=== PATIENT | female | born 1975 | race Caucasian/White ===

== ENCOUNTER 2016-11-06 15:27 | Emergency (ER) | payer SELFPAY ==
[~2016-11-06] VITALS: Ht 152.4 cm; Wt 65.0 kg
[2016-11-06 15:29] VITALS: BP 117/80; PULSE 112; RESP 20; TEMP 97.9; O2SAT 97
--- NOTE | 2016-11-06 15:33 | PD ---
Physical Exam Time Seen by Provider: 15:32 Narrative 41 y/o female presents for evaluation of weakness, headache for one week. Concerned her potassium level may be low Vital signs reviewed. Seen at triage desk. Awaiting bed placement. Data Data Last Documented VS Vital Signs Date Time Temp Pulse Resp B/P Pulse Ox O2 Delivery O2 Flow Rate FiO2 11/06/16 15:42 95 15 97 Room Air 11/06/16 15:29 97.9 117/80 Orders Complete Blood Count With Diff (11/06/16 15:46) Comprehensive Metabolic Panel (11/06/16 15:46) Lipase (11/06/16 15:46) Urinalysis - C+S If Indicated (11/06/16 15:46) Iv Access Insert/Monitor (11/06/16 15:46) Ecg Monitoring (11/06/16 15:46) Oximetry (11/06/16 15:46) Ondansetron Inj (Zofran Inj) (11/06/16 16:00) Sodium Chlor 0.9% 1000 Ml Inj (Ns 1000 M (11/06/16 15:46) Sodium Chloride 0.9% Flush (Ns Flush) (11/06/16 16:00) Ed Urine Pregnancytest Poc (11/06/16 15:46) Sodium Chlor 0.9% 1000 Ml Inj (Ns 1000 M (11/06/16 16:00) MDM Medical Record Reviewed: Yes Supervised Visit with RICHARD: Vamsi Castle November 06, 2016 15:33
[2016-11-06] MEDS ORDERED: ALBUAER3 INH (15:45)
[2016-11-06] MEDS ORDERED: ZOFR4TAB PO (15:45)
[2016-11-06] MEDS ORDERED: SYMB80AE INH (15:45)
[2016-11-06] MEDS ORDERED: SODIUM CHLOR 0.9% 1000 ML INJ 1,000 ML IV SCH (15:46)
[2016-11-06 15:54] VITALS: O2SAT 100
--- NOTE | 2016-11-06 15:56 | PD ---
HPI Chief Complaint: General Weakness Time Seen by Provider: 15:40 Travel History International Travel<30 days: No Contact w/Intl Traveler<30days: No Traveled to known affect area: No History of Present Illness HPI 41-year-old female complains of weakness, tiredness, nausea, lightheadedness, fatigue, right upper quadrant pain, double vision for one week. 3 weeks prior she underwent a cholecystectomy. She denies fever. No vaginal bleeding or discharge. No urinary complaint. Severity moderate. Timing is intermittent. PFSH Past Medical History Asthma: Yes Heart Rhythm Problems: Yes (tachycardia) Cardiovascular Problems: Yes (PFO) Diminished Hearing: No Hepatitis: Yes (C) Inguinal Hernia: Yes Medical other: Yes (HYPOKALEMIA) Tetanus Vaccination: Unknown Influenza Vaccination: No ?: Not Past Surgical History Appendectomy: Yes Cholecystectomy: Yes (3 weeks ago) Hysterectomy: Yes Other Surgery: Yes (hernia sx ) Social History Alcohol Use: No Tobacco Use: Yes (/2 ppd) Substance Use: No Allergies-Medications (Allergen,Severity, Reaction): Coded Allergies: Beta Blockers (Verified Allergy, Intermediate, "passes out", 11/06/16) Reported Meds & Prescriptions Reported Meds & Active Scripts Active Bactrim DS (Sulfamethoxazole-Trimethoprim) 800-160 Mg Tab 1 Tab PO BID Keflex (Cephalexin) 250 Mg Cap 250 Mg PO Q6H 5 Days Reported Zofran (Ondansetron HCl) 4 Mg Tab 4 Mg PO Q8HR PRN Proair Hfa 8.5 GM Inh (Albuterol Sulfate) 90 Mcg/Act Aer 2 Puff INH Q4-6H PRN 108 mcg/actuation Symbicort Inh (Budesonide/Formoterol Fumarate) 80-4.5 Mcg/Act Aero 2 Puff INH Q12HR Review of Systems Except as stated in HPI: all other systems reviewed are Neg General / Constitutional: No: Fever Physical Exam Narrative GENERAL: Well-nourished well-developed 41-year-old female SKIN: Warm and dry. HEAD: Atraumatic. Normocephalic. EYES: Pupils equal and round. No scleral icterus. No injection or drainage. ENT: No nasal bleeding or discharge. Mucous membranes pink and moist. NECK: Trachea midline. No JVD. CARDIOVASCULAR: Regular rate and rhythm. RESPIRATORY: No accessory muscle use. Clear to auscultation. Breath sounds equal bilaterally. GASTROINTESTINAL: Soft. Minimal tenderness to deep palpation in the right abdomen. MUSCULOSKELETAL: Extremities without clubbing, cyanosis, or edema. No obvious deformities. NEUROLOGICAL: Awake and alert. No obvious cranial nerve deficits. Motor grossly within normal limits. Five out of 5 muscle strength in the arms and legs. Normal speech. PSYCHIATRIC: Appropriate mood and affect; insight and judgment normal. Data Data Last Documented VS Vital Signs Date Time Temp Pulse Resp B/P Pulse Ox O2 Delivery O2 Flow Rate FiO2 11/06/16 15:54 100 Room Air 11/06/16 15:42 95 15 11/06/16 15:29 97.9 117/80 Vital signs reviewed Orders Complete Blood Count With Diff (11/06/16 15:46) Comprehensive Metabolic Panel (11/06/16 15:46) Lipase (11/06/16 15:46) Urinalysis - C+S If Indicated (11/06/16 15:46) Iv Access Insert/Monitor (11/06/16 15:46) Ecg Monitoring (11/06/16 15:46) Oximetry (11/06/16 15:46) Ondansetron Inj (Zofran Inj) (11/06/16 16:00) Sodium Chlor 0.9% 1000 Ml Inj (Ns 1000 M (11/06/16 15:46) Sodium Chloride 0.9% Flush (Ns Flush) (11/06/16 16:00) Ed Urine Pregnancytest Poc (11/06/16 15:46) Sodium Chlor 0.9% 1000 Ml Inj (Ns 1000 M (11/06/16 16:00) Labs Laboratory Tests Test 11/06/16 11/06/16 15:56 16:15 Urine Color YELLOW Urine Turbidity HAZY Urine pH 5.5 Urine Specific [place] 1.031 Urine Protein TRACE mg/dL Urine Glucose (UA) NEG mg/dL Urine Ketones 10 mg/dL Urine Occult Blood NEG Urine Nitrite NEG Urine Bilirubin NEG Urine Urobilinogen 2.0 MG/DL Urine Leukocyte Esterase LARGE Urine WBC 1 /hpf Urine Squamous Epithelial 1 /hpf Cells Urine Bacteria FEW /hpf Urine Mucus MANY /lpf Microscopic Urinalysis Comment CULT NOT INDICATED White Blood Count 6.6 TH/MM3 Red Blood Count 4.73 MIL/MM3 Hemoglobin 16.3 GM/DL Hematocrit 45.7 % Mean Corpuscular Volume 96.6 FL Mean Corpuscular Hemoglobin 34.5 PG Mean Corpuscular Hemoglobin 35.7 % Concent Red Cell Distribution Width 13.4 % Platelet Count 222 TH/MM3 Mean Platelet Volume 7.9 FL Neutrophils (%) (Auto) 63.4 % Lymphocytes (%) (Auto) 28.2 % Monocytes (%) (Auto) 6.8 % Eosinophils (%) (Auto) 1.3 % Basophils (%) (Auto) 0.3 % Neutrophils # (Auto) 4.2 TH/MM3 Lymphocytes # (Auto) 1.9 TH/MM3 Monocytes # (Auto) 0.5 TH/MM3 Eosinophils # (Auto) 0.1 TH/MM3 Basophils # (Auto) 0.0 TH/MM3 CBC Comment DIFF FINAL Differential Comment Sodium Level 140 MEQ/L Potassium Level 4.0 MEQ/L Chloride Level 110 MEQ/L Carbon Dioxide Level 23.2 MEQ/L Anion Gap 7 MEQ/L Blood Urea Nitrogen 9 MG/DL Creatinine 0.62 MG/DL Estimat Glomerular Filtration 107 ML/MIN Rate Random Glucose 96 MG/DL Calcium Level 8.9 MG/DL Total Bilirubin 0.6 MG/DL Aspartate Amino Transf 22 U/L (AST/SGOT) Alanine Aminotransferase 40 U/L (ALT/SGPT) Alkaline Phosphatase 61 U/L Total Protein 8.0 GM/DL Albumin 4.2 GM/DL Lipase 215 U/L [facility] Medical Decision Making Medical Screen Exam Complete: Yes Emergency Medical Condition: Yes Differential Diagnosis Constipation, Gastritis, Acute Cholecystitis, Biliary Colic, Pancreatitis, MARTINEZ , Hepatitis, Bowel Obstruction, Cystitis, Mesenteric Ischemia, AAA, Appendicitis , Renal Stone/Hydronephrosis, GERD, perforated viscous Narrative Course CBC & BMP Diagram 11/06/16 16:15 LFTs normal Lipase normal UA: possible UTI POC negative The patient is resting comfortably and feels better, is alert and in no distress. The patients results and examination findings were discussed. The repeat examination is unremarkable and benign. The history, exam, diagnostic testing, and current condition do not suggest any significant pathology to warrant further testing, continued ED treatment, admission, or surgical evaluation at this point. The vital signs have been stable. The patient does not have uncontrollable pain, intractable vomiting, or other significant symptoms. The patient's condition is stable and appropriate for discharge. The patient will pursue further outpatient evaluation with a primary care physician or other designated or consulting physician as indicated in the discharge instructions. The patient expressed understanding and was agreeable with this plan. Diagnosis Primary Impression: Malaise and fatigue Additional Impressions: RUQ abdominal pain Cystitis Referrals: Tarik Fletcher MD 2 days Additional Instructions: You have a choice when it comes to health care, and we are glad that you chose [facility]. Hopefully, we have met your expectations on today's visit. You are welcome to return to [facility] at any time, as we are committed to meeting the health care needs of our community. Med/Other Pt SpecificInfo: Prescription(s) given Scripts Sulfamethoxazole-Trimethoprim (Bactrim DS)800-160 Mg Tab1 Tab PO BID #6 TAB Ref 1 Prov:Sunny Guardado MD 11/06/16 Cephalexin (Keflex)250 Mg [id number] Mg PO Q6H 5 Days Ref 0 Prov:Sunny Guardado MD 11/06/16 Disposition: 01 DISCHARGE HOME Condition: Stable Sunny Guardado MD November 06, 2016 15:56
[2016-11-06] MEDS ORDERED: SODIUM CHLOR 0.9% 1000 ML INJ 1,000 ML IV ONE (16:00)
[2016-11-06] MEDS ORDERED: SODIUM CHLORIDE 0.9% FLUSH 10 ML FLUSH IV FLUSH PRN (16:00)
[2016-11-06] MEDS ORDERED: ONDANSETRON HCL 4 MG/2 ML VIAL IVP ONE (16:00)
[2016-11-06 16:33] LABS: BACTERIA, URINE FEW /hpf; BLOOD, URINE NEG (NEG); COMMENT (UR) CULT NOT INDICATED; CULTURE IF INDICATED CULT NOT INDICATED; GLUCOSE,URINE NEG (NEG); KETONE, URINE 10 mg/dL (NEG); MUCUS URINE MANY /lpf (OCC); NITRITE,URINE NEG (NEG); PH, URINE 5.5 (5.0-8.5); SQUAMOUS EPITHELIAL CELL URINE 1 /hpf (0-5); URINE COLOR YELLOW (YELLW/STRAW)
[2016-11-06 16:35] LABS: AUTOMATED NEUTROPHIL # 4.2 TH/MM3 (1.8-7.7); BASOPHIL % 0.3 % (0.0-2.0); EOSINOPHIL # 0.1 TH/MM3 (0-0.4); EOSINOPHIL % 1.3 % (0.0-4.0); HEMATOCRIT 45.7 % (35.0-46.0); HEMO FLAGS DIFF FINAL; LYMPH % 28.2 % (9.0-44.0); LYMPHOCYTE # 1.9 TH/MM3 (1.0-4.8); MEAN CELL VOLUME 96.6 FL (80.0-100.0); MEAN CORPUSCULAR HEMOGLOBIN 34.5 PG (27.0-34.0); MEAN CORPUSCULAR HGB CONC 35.7 % (32.0-36.0); MONO % 6.8 % (0.0-8.0); NEUT % 63.4 % (16.0-70.0); PLATELET COUNT 222 TH/MM3 (150-450); RED BLOOD COUNT 4.73 MIL/MM3 (4.00-5.30); RED CELL DISTRIBUTION WIDTH 13.4 % (11.6-17.2); WHITE BLOOD COUNT 6.6 TH/MM3 (4.0-11.0)
[2016-11-06 17:27] LABS: ALT (GPT) 40 U/L (10-53); ANION GAP 7 MEQ/L (5-15); AST (GOT) 22 U/L (15-37); BICARBONATE 23.2 MEQ/L (21.0-32.0); BLOOD UREA NITROGEN 9 MG/DL (7-18); CHLORIDE 110 MEQ/L (98-107); GLOMERULAR FILTRATION RATE 107 ML/MIN (>89); SODIUM (NA) 140 MEQ/L (136-145)
[2016-11-06 17:29] LABS: ALKALINE PHOSPHATASE 61 U/L (45-117); TOTAL BILIRUBIN ADULT 0.6 MG/DL (0.2-1.0)
[2016-11-06] MEDS ORDERED: CEPH-459 PO (17:32)
[2016-11-06] MEDS ORDERED: BACT800T5 PO (17:32)
[2016-11-06 17:45] VITALS: BP 110/78; PULSE 99; RESP 17; O2SAT 99
== END 2016-11-06 17:45 | disposition home or self-care (01) ==
LOC: EDSEX → NEPE 15:27
DX: R53.83 Other fatigue (principal); R53.81 Other malaise; R10.11 Right upper quadrant pain; N30.90 Cystitis, unspecified without hematuria
CPT/HCPCS: 80053; 81001; 83690; 84703; 85025; 96361; 96374; 99284; J2405; J7030